=== PATIENT | female | born 1985 | race Two or more races ===

== ENCOUNTER 2024-08-12 15:57 | Emergency (ER) | payer BC ==
[~2024-08-12] VITALS: Ht 157.5 cm; Wt 71.9 kg
--- NOTE | 2024-08-12 16:29 | ED.PDOC ---
History of Present Illness HPI Comments 39 y/o F presents with c/o headache, dizziness, and neck stiffness w/associated left-sided neck pain, today. Patient endorses on persisting headache since 08/09/24, with additional onset of dizziness whenever she stands and neck stiffness and pain, today. She comments on history of frequent headaches in the past and concerns for current one, due to it lasting longer than usual and having a FMHx of migraines and brain aneurysms. Neck pain is stated to be exacerbated whenever turning her neck to the left-side. She reports no formal neurology consult regarding headaches in the past and having no recent sick contact, injuries, or other pertinent events. Patient denies having any weakness, numbness, vision or speech changes, fever, chills, or other associated symptoms or modifiers at this time. Chief Complaint: Headache Time Seen by MD: 16:15 Reviewed Notes: Nurses Notes, Medications, Allergies Allergies: Coded Allergies: NO KNOWN ALLERGIES (Unverified , 08/12/24) Information Source: Patient Mode of Arrival: Ambulatory Severity: Moderate Timing: Days Duration: Since onset Prehospital treatment: None Past Medical History PAST MEDICAL HISTORY: Denies Surgical History: Denies all surgeries WELFARE INTERVIEWER History: Denies all WELFARE INTERVIEWER Hx Family History Family History (Other): migraines and brain aneurysms Neurological: reports: dizziness, headache Musculoskeletal: reports: neck pain, others (neck stiffness ) All Other Systems: Reviewed and Negative (negative unless otherwise stated above or in HPI) Physical Exam General Appearance: No Apparent Distress, Normal HEENT: Normal ENT Inspection, Pharynx Normal, TMs Normal, Other (tenderness to left-side of neck that is exacerbated whenever turning to her left-side) Neck: Full Range of Motion, Non-Tender, Normal, Normal Inspection Respiratory: Chest Non-Tender, Lungs Clear, No Accessory Muscle Use, No Respiratory Distress, Normal Breath Sounds Cardiovascular: No Edema, No JVD, No Murmur, No Gallop, Normal Peripheral Pulses, Regular Rate/Rhythm Breast Exam: Deferred Gastrointestinal: No Organomegaly, Non Tender, No Pulsatile Mass, Normal Bowel Sounds, Soft Genitalia: Deferred Pelvic: Deferred Rectal: Deferred Extremities: No calf tenderness, Normal capillary refill, Normal inspection, Normal range of motion, Non-tender, No pedal edema Musculoskeletal : Apperance: Normal Neurologic: Alert, dry clipper tender II-XII nml as Tested, No Motor Deficits, Normal Affect, Normal Mood, No Sensory Deficits Cerebellar Function: Normal Reflexes: Normal Skin: Dry, Normal Color, Warm Lymphatic: No Adenopathy Was a procedure done? Was a procedure done?: No Differential Dx Considerations may include: migraines, tension, viral syndrome, meningitis, cerebral aneurism, intracranial bleed, CO poisoning X-Ray, Labs, Meds, VS Vital Signs Date Time Temp Pulse Resp B/P (MAP) Pulse Ox O2 Delivery O2 Flow Rate FiO2 08/12/24 16:05 97.8 89 16 168/80 (109) 100 Lab Test 08/12/24 16:08 Range/Units Urine Color Light-yellow Yellow Urine Clarity Clear Clear Urine pH 6.0 5.0-9.0 Urine Specific [place] 1.025 1.001-1.035 Urine Protein Negative Negative Urine Ketones Negative Negative Urine Blood Negative Negative /uL Urine Nitrite Negative Negative Urine Bilirubin Negative Negative Urine Urobilinogen 3 H Negative mg/dL Urine Leukocyte Esterase 1+ Negative /uL Urine RBC 2 0 - 4 /hpf Urine Microscopic WBC 3 0-5 /HPF Urine Squamous Epithelial Cells Few <5 /hpf Urine Bacteria Few H None Seen /hpf Urine Mucus Few None Seen Urine Glucose Normal Normal mg/dL Urine Test Negative Negative Current Medications Medications (Trade) Dose Ordered Sig/Gregory Route Start Time Stop Time Status Last Admin Acetaminophen/ Hydrocodone Bitart ([place] 5/325MG Tab) 1 tab ONCE ONCE PO 08/12/24 16:30 08/12/24 16:31 DC 08/12/24 16:50 Time of 1ST Reevaluation: 16:45 Reevaluation 1ST: Unchanged Patient Education/Counseling: Diagnosis, Treatment, Prognosis, Need For Follow Up Family Education/Counseling: No Family Present Additional Information - The following tests were ordered, and results were reviewed by me: CT head w/o contrast, urine test - I reviewed and agreed with the following test results read by other provider: CT head w/o contrast pt was concerned about brain aneurisms, reporting a family history of it. she also reports that she was never evaluated for the headaches, and celled it "migraines." the head ct is unremarkable. she is stable to follow up with her doctor. pt has a history of similar headaches for years, so CO poisoning is not likely Departure 1 Departure Time of Disposition: 18:58 Impression: Primary Impression: Headache Qualified Codes: R51.9 - Headache, unspecified Disposition: HOME / SELF CARE / HOMELESS Condition: Good e-Prescriptions Ibuprofen Micronized (MOTRIN TABLET) 600 Mg Tb 600 MG PO TID PRN, #40 TAB *Black box warning-NSAIDS can increase risk of IL & hypertension, GI irritation, ulceration, bleed, perferation. Do not use post cardiac surgery. Use short duration/lowest effective dose. Prov: CORY VERAS MD 08/12/24 Discharged With: Self Critical Care Note Critical Care Time?: Yes (55 min-critical care time only) Critical care comment: due to concerns for patient's condition deteriorating, the care required my highest level of attention and readiness to intervene. i assessed the patient's condition, ordered the proper tests and treatments, reassessed for response and reviewed the results. i communicated with medical personnel and formulated a plan of care. total critical care time does not include any procedures Stability Stability form required: No Heart Score Heart Score: Heart Score Response (Comments) Value History N/A 0 EKG N/A 0 Age N/A 0 Risk Factors N/A 0 Troponin N/A 0 Total 0 I personally scribed for CORY VERAS MD ([email or web address]) on 08/12/24 at 16:29. Electronically submitted by Guillermo Morse ([email or web address]). CORY VERAS MD Aug 12, 2024 16:29
[2024-08-12] MEDS: HYDROcodone-ACET 5/325MG TAB PO ONE (16:50)
[2024-08-12 17:05] LABS: Urine Bacteria FEW /hpf (None Seen); Urine Blood Negative /uL (Negative); Urine Clarity Clear (Clear); Urine Color Light-Yellow (Yellow); Urine Mucus FEW (None Seen); Urine Protein, UAD Negative (Negative); Urine Specific Gravity 1.025 (1.001-1.035); Urine Squamous Epithelial Cell FEW /hpf (<5); Urine Urobilinogen 3 mg/dL (Negative); Urine WBC 3 /HPF (0-5)
--- NOTE | 2024-08-12 18:38 | DVH ---
Procedure: CT HEAD WITHOUT CONTRAST Study Date and Requested Time: 08/12/2024 06:18 PM History: HEADACHE Comparison: None Dose: CTDI: 53.18 mGy DLP: 852.6 mGycm Technique: Multiplanar images obtained through the brain without intravenous contrast. Findings: Normal brain volume and formation. No hemorrhages, masses, mass effect, midline shift, herniation or cytotoxic edema following a large v ascular territory. No intra-axial or extra-axial fluid collections. No evidence of hydrocephalus. The basal cisterns are patent. The pituitary gland, sella and parasellar regions are unremarkable. The cerebellar tonsils are in nor mal position. The cerebellum is unremarkable. The orbits and globes are unremarkable. Minimal mucoperiosteal thickening of the ethmoid air cells. Otherwise, the visualized paranasal sinuses and mastoids are clear. There are no worrisome calvarial lesions. Impression: No evidence of acute intracranial abnormality.
[2024-08-12] MEDS ORDERED: IBU600T PO (18:59)
[2024-08-12 19:26] VITALS: BP 132/82; PULSE 73; RESP 18; TEMP 97.8; O2SAT 100
== END 2024-08-12 19:28 | disposition home or self-care (01) ==
LOC: ER 15:57
DX: R51.9 Headache, unspecified (principal); R42 Dizziness and giddiness; M54.2 Cervicalgia
CPT/HCPCS: 70450; 81001; 81025